=== PATIENT | male | born 1970 | race Caucasian/White ===

== ENCOUNTER 2017-05-15 16:50 | Emergency (ER) | payer OTHER ==
[2017-05-15] MEDS ORDERED: AZITHROMYCIN 250 MG TABLET (FP) PO ONE (16:58)
--- NOTE | 2017-05-15 17:01 | PDOC ---
History of Present Illness - General History Source: Patient Exam Limitations: No Limitations <Sean Stuart - Last Filed: 05/15/17 17:01> - History of Present Illness Initial Comments: 05/15/17 17:12 The patient is a 46 year old male, with a significant past medical history of, who presents to the emergency department with 5 days of sore throat and subjective fevers. The patient denies cough. He reports his son was tested positive for strep throat recently and completed a course of amoxicillin. The patient states his symptoms are similar to his sons symptoms. He denies chest pain, shortness of breath, headache and dizziness. He denies chills, nausea, vomit, diarrhea and constipation. He denies dysuria, frequency, urgency and hematuria. Allergies: aspirin/NSAIDS <Gwen Hoffman - Last Filed: 05/15/17 17:15> - General Chief Complaint: Sore Throat Stated Complaint: SORE THROAT Time Seen by Provider: 05/15/17 16:52 Past History - Past Medical History Other medical history: G6PD - Psycho/Social/Smoking Cessation Hx Anxiety: No Suicidal Ideation: No Smoking History: Never smoked Information on smoking cessation initiated: No Hx Alcohol Use: (occasional) Substance Use Type: None <Sean Stuart - Last Filed: 05/15/17 17:01> <Gwen Hoffman - Last Filed: 05/15/17 17:15> - Past Medical History Allergies/Adverse Reactions: Allergies Allergy/AdvReac Type Severity Reaction Status Date / Time aspirin Allergy Verified 05/15/17 16:52 NSAIDS (Non-Steroidal Allergy Verified 05/15/17 16:52 Anti-Inflamma Home Medications: Ambulatory Orders Azithromycin 250 mg PO DAILY #4 tablet 05/15/17 Review of Systems - Review of Systems Able to Perform ROS?: Yes Comments:: 05/15/17 17:12 GENERAL/CONSTITUTIONAL: (+) subjective fever. no chills. No weakness. HEAD, EYES, EARS, NOSE AND THROAT: (+) sore throat.No change in vision. No ear pain or discharge. CARDIOVASCULAR: No chest pain or shortness of breath. RESPIRATORY: No cough, wheezing, or hemoptysis. GASTROINTESTINAL: No nausea, vomiting, diarrhea or constipation. GENITOURINARY: No dysuria, frequency, or change in urination. MUSCULOSKELETAL: No joint or muscle swelling or pain. No neck or back pain. SKIN: No rash NEUROLOGIC: No headache, vertigo, loss of consciousness, or change in strength/ sensation. ENDOCRINE: No increased thirst. No abnormal weight change. HEMATOLOGIC/LYMPHATIC: No anemia, easy bleeding, or history of blood clots. ALLERGIC/IMMUNOLOGIC: No hives or skin allergy. <YasminGwen - Last Filed: 05/15/17 17:15> *Physical Exam - Vital Signs Last Vital Signs Temp Pulse Resp BP Pulse Ox 99.1 F 77 18 117/81 98 05/15/17 16:50 05/15/17 16:50 05/15/17 16:50 05/15/17 16:50 05/15/17 16:50 <Sean tSuart - Last Filed: 05/15/17 17:01> - Vital Signs Last Vital Signs Temp Pulse Resp BP Pulse Ox 99.1 F 77 18 117/81 98 05/15/17 16:50 05/15/17 16:50 05/15/17 16:50 05/15/17 16:50 05/15/17 16:50 - Physical Exam Comments: 05/15/17 17:14 GENERAL: Awake, alert, and fully oriented, in no acute distress HEAD: No signs of trauma EYES: PERRLA, EOMI, sclera anicteric, conjunctiva clear ENT: (+) Oropharynx is mildly erythematous. Auricles normal inspection, hearing grossly normal, nares patent, oropharynx without exudates. Moist mucosa NECK: (+) Mild anterior cervical lymphadenopathy. Normal ROM, supple, No JVD, or masses LUNGS: Breath sounds equal, clear to auscultation bilaterally. No wheezes, and no crackles HEART: Regular rate and rhythm, normal S1 and S2, no murmurs, rubs or gallops ABDOMEN: Soft, nontender, normoactive bowel sounds. No guarding, no rebound. No masses EXTREMITIES: Normal range of motion, no edema. No clubbing or cyanosis. No cords, erythema, or tenderness NEUROLOGICAL: Cranial nerves II-XII intact. Normal speech, normal gait. Sensation intact in upper and lower extremities. 5/5 motor strength in upper and lower extremities. No pronator drift. Finger to nose intact. Rapid alternations intact. SKIN: Warm, Dry, normal turgor, no rashes or lesions noted. <Gwen Hoffman - Last Filed: 05/15/17 17:15> ED Treatment Course - Medications Given in the ED: ED Medications Discontinued Medications Generic Name Dose Route Start Last Admin Trade Name Leeroy PRN Reason Stop Dose Admin Azithromycin 500 mg 05/15/17 16:58 05/15/17 17:03 Zithromax - PO 05/15/17 16:59 500 mg ONCE ONE Administration <Kalyan Hoffmananda - Last Filed: 05/15/17 17:15> Medical Decision Making - Medical Decision Making 05/15/17 17:01 A portion of this note was documented by scribe services under my direction. I have reviewed the details of the note, within reason, and agree with the documentation with the following case summary and management plan written by me. Patient treated in the ED. Nursing notes are reviewed and incorporated into the medical decision-making. Vital signs reviewed. Peripheral IV access obtained by the nurse, laboratory studies are drawn and sent, reviewed and interpreted by myself. Vital Signs Temp Pulse Resp BP Pulse Ox 99.1 F 77 18 117/81 98 05/15/17 16:50 05/15/17 16:50 05/15/17 16:50 05/15/17 16:50 05/15/17 16:50 46-year-old male with no medical history presents with approximately 5 days of sore throat and tactile fevers. Denies cough. Patient has positive sick contact with son who tested positive for strep throat. Reports similar symptoms. We'll send a rapid strep and throat culture. However, given positive sick contact in close proximity and the pharyngitis, we'll start azithromycin. Tylenol as needed for pain. Return precautions given. I discussed the physical exam findings, ancillary test results and final diagnoses with the patient. I answered all of the patient's questions. The patient was satisfied with the care received and felt comfortable with the discharge plan and treatment plan. The patient will call their primary care physician within 24 hours to arrange follow-up and will return to the Emergency Department with any new, persistant or worsening symptoms. <Sean Stuart - Last Filed: 05/15/17 17:01> *DC/Admit/Observation/Transfer - Discharge Dispostion Admit: No <Sean Stuart - Last Filed: 05/15/17 17:01> - Attestations Scribe Attestion: 05/15/17 17:15 Documentation prepared by Gwen Hoffman, acting as medical aides teacher for Sean Stuart MD, <Gwen Hoffman - Last Filed: 05/15/17 17:15> Diagnosis at time of Disposition: Pharyngitis Qualifiers: Pharyngitis/tonsillitis etiology: unspecified etiology Qualified Code(s): J02.9 - Acute pharyngitis, unspecified - Discharge Dispostion Disposition: HOME Condition at time of disposition: Stable - Prescriptions Prescriptions: Azithromycin 250 mg PO DAILY #4 tablet - Patient Instructions Printed Discharge Instructions: DI for Pharyngitis/Tonsillopharyngitis -- Adult Additional Instructions: You have received your first dose of azithromycin here in the ER. Please continue your antibiotics (azithromycin) for the 4 days. Take 650 mg tylenol every 4 hours as needed for pain. Drink plenty of fluids and rest. It will take several days before your symptoms improve. To call back for your throat culture results, call [phone].
[2017-05-15] MEDS ORDERED: AZITHROMYCIN 250 MG TABLET (FP) ONE (17:02)
[2017-05-15 17:12] VITALS: BP 117/81; PULSE 77; TEMP 99.1; BMI 25.0
== END 2017-05-15 17:10 | disposition home or self-care (01) ==
LOC: FER 16:50
DX: J02.9 Acute pharyngitis, unspecified (principal)
CPT/HCPCS: 87070; 87430; 99283-25

== ENCOUNTER 2019-08-12 15:09 | Emergency (ER) | payer BC, OTHER ==
[2019-08-12 16:25] VITALS: BP 94/62; PULSE 60; TEMP 98.4; BMI 25.0
--- NOTE | 2019-08-12 17:04 | PDOC ---
Documentation entered by Wendy Dangelo SCRIBE, acting as scribe for Sven Adhikari MD. Sven Adhikari MD: This documentation has been prepared by the Antolin williamson Aiswarya, SCRIBE, under my direction and personally reviewed by me in its entirety. I confirm that the documentation accurately reflects all work, treatment, procedures, and medical decision making performed by me. History of Present Illness - General Chief Complaint: Injury Stated Complaint: LEFT WRIST PAIN - History of Present Illness Initial Comments: 08/12/19 16:55 49-year-old male with no significant past medical history presents the emergency department for evaluation of wrist pain for 2 months. He reports initially injuring his left wrist while catching a baseball 2 months ago. States that he does not have pain in his wrist at baseline, only when he extends his wrist. States he was playing catch with his son this weekend and when he noticed a persistent pain with extension, he decided to present to the emergency department for an x-ray to rule out a fracture. The pain has not gotten worse over the last 2 months. He has not seen orthopedic doctor over the wrist pain. No treatments tried. Denies any recent fevers, chills, chest pain, shortness of breath, headache, weakness, numbness, dizziness, abdominal pain, nausea, vomiting, diarrhea, urinary symptoms. Past History - Past Medical History Allergies/Adverse Reactions: Allergies Allergy/AdvReac Type Severity Reaction Status Date / Time aspirin Allergy Verified 05/15/17 16:52 NSAIDS (Non-Steroidal Allergy Verified 05/15/17 16:52 Anti-Inflamma Home Medications: Ambulatory Orders NK [No Known Home Medication] 08/12/19 - Suicide/Smoking/Psychosocial Hx Smoking History: Never smoked Hx Alcohol Use: (occasional) Substance Use Type: None Review of Systems - Review of Systems Comments:: 08/12/19 16:57 GENERAL/CONSTITUTIONAL: No fever or chills. No weakness. HEAD, EYES, EARS, NOSE AND THROAT: No change in vision. No ear pain or discharge. No sore throat. GASTROINTESTINAL: No nausea, vomiting, diarrhea or constipation. GENITOURINARY: No dysuria, frequency, or change in urination. CARDIOVASCULAR: No chest pain or shortness of breath. RESPIRATORY: No cough, wheezing, or hemoptysis. MUSCULOSKELETAL: +L wrist pain. No muscle swelling or pain. No neck or back pain. SKIN: No rash NEUROLOGIC: No headache, vertigo, loss of consciousness, or change in strength/ sensation. ENDOCRINE: No increased thirst. No abnormal weight change. HEMATOLOGIC/LYMPHATIC: No anemia, easy bleeding, or history of blood clots. ALLERGIC/IMMUNOLOGIC: No hives or skin allergy. *Physical Exam - Vital Signs Last Vital Signs Temp Pulse Resp BP Pulse Ox 98.4 F 60 14 94/62 96 08/12/19 15:10 08/12/19 15:10 08/12/19 15:10 08/12/19 15:10 08/12/19 15:10 - Physical Exam Comments: 08/12/19 16:58 GENERAL: Awake, alert, and fully oriented, in no acute distress HEAD: No signs of trauma EYES: PERRLA, EOMI, sclera anicteric, conjunctiva clear ENT: Auricles normal inspection, hearing grossly normal, nares patent, oropharynx clear without exudates. Moist mucosa NECK: Normal ROM, supple, no lymphadenopathy, JVD, or masses LUNGS: Breath sounds equal, clear to auscultation bilaterally. No wheezes, and no crackles HEART: Regular rate and rhythm, normal S1 and S2, no murmurs, rubs or gallops ABDOMEN: Soft, nontender, normoactive bowel sounds. No guarding, no rebound. No masses EXTREMITIES: L wrist, no bony ttp. +pain over ulnar styloid when wrist is in full extension. No deformities, erythema. 2+ radial pulses. No bony ttp in hand. ABle to flex, extend, abduct all digits against resistance. Able to give okay, thumbs up, and oppose thumb against resistance. Normal sensation distally. NEUROLOGICAL: Normal speech, cranial nerves intact, equal strength and sensation b/l SKIN: Warm, Dry, normal turgor, no rashes or lesions noted. ED Treatment Course - RADIOLOGY Radiology Studies Ordered: Category Date Time Status WRIST-LEFT [RAD] Stat Radiology 08/12/19 15:12 Taken Medical Decision Making - Medical Decision Making 08/12/19 17:06 49yo M prsents to the ED with L wrist pain when he extends wrist for 2 months No bony ttp XR neg L wrist NVI Likely ligamentous injury Pt referred to Dr. Ash for further evaluation Clinically stable for DC home I discussed the physical exam findings, ancillary test results and final diagnoses with the patient. I answered all of the patient's questions. The patient was satisfied with the care received and felt comfortable with the discharge plan and treatment plan. The patient will call their primary care physician within 24 hours to arrange follow-up and will return to the Emergency Department with any new, persistent or worsening symptoms. *DC/Admit/Observation/Transfer Diagnosis at time of Disposition: Wrist pain, left, Pain aggravated by physical activity, Left arm pain - Discharge Dispostion Disposition: HOME Condition at time of disposition: Good Decision to Admit order: No - Referrals Referrals: Jostin He MD [Primary Care Provider] - Tony Aleman MD [Staff Physician] - - Patient Instructions Printed Discharge Instructions: DI for Wrist Pain Additional Instructions: Follow up with Dr. Almean within 1-2 weeks for your wrist pain. Return to the emergency department if you have any new, worsening, or concerning symptoms - Post Discharge Activity - Attestations Physician Attestion: 08/12/19 17:03 I, Dr. Sven Adhikari MD, attest that this document has been prepared under my direction and personally reviewed by me in its entirety. I further attest, that it accurately reflects all work, treatment, procedures and medical decision -making performed by me.
== END 2019-08-12 17:05 | disposition home or self-care (01) ==
LOC: FER 15:09
DX: M79.602 Pain in left arm (principal)
CPT/HCPCS: 73110-TC-LT-FY; 99282-25